=== PATIENT | female | born 1950 | race Caucasian/White ===

== ENCOUNTER → 2018-09-26 13:48 | Outpatient (CLI) | payer BC, MEDICARE ==
[2015-09-14 13:13] VITALS: BMI 40.1
[~2018-09-26 13:48] MED LIST: HYZAAR 50-12.51 TAB PO; LEXAPRO20 MG PO; SYNTHROID88 MCG PO; ZANAFLEX4 MG PO
--- NOTE | 2018-10-01 12:04 | ST ---
PATIENT:TSEWART HUERTAS MEDICAL RECORD: [id number] SEX: F LOCATION:[facility] ORDER #: ADMISSION DATE: 09/26/18 AGE OF PATIENT: 68 REFERRING PHYSICIAN: INTERPRETING PHYSICIAN: KRISTIN GALDAMEZ MD DATE OF SERVICE: 09/26/2018 PROCEDURE: EKG stress test. INDICATIONS: Angina, shortness of breath. She was exercised on standard Trent protocol for 5 minutes, terminated due to achievement of maximum target heart rate response with anginal chest discomfort and shortness of breath during the study. EKG shows greater than 2-mm ST depression. OVERALL IMPRESSION: Positive for inducible ischemia with symptomatology as well as by EKG criteria. Most likely signifies hemodynamically significant coronary artery disease. TRANSINT:[id number] Voice Confirmation ID: [id number] DOCUMENT ID: [id number] KRISTIN GALDAMEZ MD at 1204 CC: [id number] DICTATION DATE: 09/30/18 1150 FLIGHT TEACHER: 09/30/18 2222 DEP CLI 09/26/18 [id number] [place] [address]
== END | disposition home or self-care (01) ==
LOC: D.HCCARDIO 13:48
PROVIDERS: ATTEND Internal Medicine Interventional Cardiology
DX: I20.9 Angina pectoris, unspecified (principal)

== ENCOUNTER → 2018-09-27 11:12 | Outpatient (CLI) | payer BC, MEDICARE ==
[2015-09-14 13:13] VITALS: BMI 40.1
--- NOTE | 2018-10-01 12:04 | EC ---
PATIENT:STEWART HUERTAS DATE OF SERVICE: 09/27/18 SEX: F MEDICAL RECORD: [id number] DATE OF : [birth year] LOCATION:D[facility] AGE OF PATIENT: 68 ADMISSION DATE: 09/27/18 REFERRING PHYSICIAN: INTERPRETING PHYSICIAN: KRISTIN VASQUEZ MD ECHOCARDIOGRAM REPORT ECHO CHARGES 4 ECHO COMPLETE Date: 09/27/18 CLINICAL DIAGNOSIS: MITRAL REGURG, ASSESS FOR CARDIOMYOPATHY, BRADYCARDIA ECHOCARDIOGRAPHIC MEASUREMENTS (adult normal given) AC root (d.<3.7cm) 2.8 cm LV Septum d (<1.2 cm> 1.3 cm Valve Excursion 1.4 cm LV Septum (systole) 1.6 cm Left Atria (s.<4.0cm> 4.1 cm LVPW d(<1.2cm) 1.8 cm RV (d.<2.3cm) 4.1 cm LVPW (sytole) 2.0 cm LV diastole(<5.6CM) 4.8 cm MV E-F(>70mm/sec) cm LV systole 3.1 cm LVOT Diameter 1.6 cm MV exc.(>10mm) 1.4 cm Est.ejection fraction (50-75%) % DOPPLER: LVIT cm/sec A 80.0 cm/sec E 117 cm/sec LA cm/sec RVSP 50 mmHg LVOT 140 cm/sec AOP1/2T m/s Asc. Ao 166 cm/sec RVOT 93 cm/sec RA cm/sec PA 127 cm/sec AV Gradient Peak 11.05mmHg AV Mean 5.82 mmHg AV Area 1.9 cm MV Gradient Peak 6.77 mmHg MV Mean 1.82 mmHg MV Area cm COMMENTS: Levi Maker: Daphney REESE Speech And Language Assistant: 1 Dr. Vasquez TAPE# PACS Pericardial Effusion N DATE OF SERVICE: 09/27/2018 PROCEDURE: Echocardiogram. FINDINGS: 1. Left ventricular chamber size is within normal limits. Left ventricular systolic function is normal at 60%. 2. Left atrium is enlarged at 4.1 cm. Right atrium and right ventricular chamber sizes are as well mildly dilated. 3. Valvular structures have normal structure and motion. ECHOCARDIOGRAM REPORT [id number] STEWART HUERTAS 4. Doppler interrogation reveals mild mitral regurgitation, mild tricuspid regurgitation, no other valvular insufficiency or stenosis. Pulmonary systolic pressure is elevated estimated at 50 mmHg. 5. No evidence of pericardial effusion or left ventricular thrombus. TRANSINT:[id number] Voice Confirmation ID: [id number] DOCUMENT ID: [id number] KRISTIN VASQUEZ MD at 1204 CC: [id number] DICTATION DATE: 09/30/18 1140 OFFICE SUPPORT SPECIALIST: 09/30/18 1150 DEP CLI 09/27/18 [id number] [place] [address]
== END | disposition home or self-care (01) ==
LOC: D.HCCARDIO 11:12
PROVIDERS: ATTEND Internal Medicine Interventional Cardiology
DX: I34.0 Nonrheumatic mitral (valve) insufficiency (principal)

== ENCOUNTER 2018-10-04 08:50 | Outpatient (CLI) | payer BC, MEDICARE ==
[~2018-10-04] VITALS: Ht 154.9 cm; Wt 96.4 kg
--- NOTE | ~2018-10-04 | HEMODYNAMI ---
PATIENT:STEWART HUERTAS MEDICAL RECORD: [id number] : 52 LOCATION:[facility] ADMISSION DATE: 10/04/18 Generatedon:10/04/201813:28 Patient name: STEWART HUERTAS Patient #: [id number] : 1950 Date of study: 10/04/2018 Page: Of Hemodynamic Procedure Report Patient Data Patient Demographics Procedure consent was obtained First Name: STEWART Gender: Female Last Name: KIYA : 1950 Middle Initial: LATONIA Age: 68 year(s) Patient #: [id number] Race: Unknown SSN: [id number] Additional ID: [id number] Contact details [address]: [address] [place] [address] State: [place] City: [place] Zip code: [address] Past Medical History Allergies Allergen Reaction Date Comments Reported Other allergy 10/04/2018 Sulfa Admission Admission Data Admission Date: 10/04/2018 Admission Time: 8:50 Height (in.): 61 BSA: 1.95 (m2) Height (cm.): 154.94 BMI: 40.62 (kg/m2) Weight (lbs.): 215 Weight (kg.): 97.52 Lab Results Lab Result Date: 10/04/2018 Lab Result Time: 0:00 Biochemistry Name Units Result Min Max BUN mg/dl 11 --(-*--)-- 7 18 Creatinine mg/dl 0.8 --(-*--)-- 0.6 1.3 CBC Name Units Result Min Max Hemoglobin g/dl 12.1 *-(----)-- 13.5 17.5 Procedure Procedure Types Cath Procedure Diagnostic Procedure [facility] w/Coronaries Procedure Description Procedure Date Procedure Date: 10/04/2018 Procedure Start Time: 13:21 Procedure End Time: 13:27 Procedure Staff Name Function Sheri Resendez MD Ordering physician Kavon Vasquez MD Performing Physician Genet Zamorano RT Monitor Bryan Lezama RN Nurse Marcella Salgado RT Scrub Procedure Data Cath Procedure Fluoroscopy Diagnostic fluoroscopy Total fluoroscopy Time: 0.6 time: 0.6 min min Diagnostic fluoroscopy Total fluoroscopy dose: 237 dose: 237 mGy mGy Contrast Material Contrast Material Type Amount (ml) Isovue 300 34 Entry Location Entry Primary Successful Side Size Upsize Upsize Entry Closure Bond ccessful Closure Location (Fr) 1 (Fr) 2 (Fr) Remarks Device Remarks Radial Right 6 Fr Mechanical artery Short Compression Estimated blood loss: 10 ml Diagnostic catheters Device Type Used For End Catheter Placement DIAGNOSTIC [place] 110cm 5 Procedure Fr catheter ([id number]) Procedure Complications No complications Procedure Medications Medication Administration Route Dosage 0.9% NaCl I.V. 100 ml/hr Oxygen etCO2 Nasal cannula 2 l/min Heparin Flush Bag added to field 2 bags (1000units/500ml NS) Lidocaine 2% added to field 20 Radial Cocktail added to field 1 syringe (Verapamil 2mg/Nitro 400mcg/Heparin 1500units) Versed I.V. 2 mg Fentanyl I.V. 100 mcg Radial Cocktail I.A. 1 syringe (Verapamil 2mg/Nitro 400mcg/Heparin 1500units) Versed I.V. 1 mg Hemodynamics Rest BSA: 1.95 (m2) HGB: 12.1 (g/dl) O2 Consumption: Estimated: 170.57 (ml/min) O2 Co nsumption indexed: Estimated:87.47 (ml/min/m) Heart Rate: 56 (bpm) Pressure Samples Time Site Value (mmHg) Purpose Heart Use Rate(bpm) 13:22 LV 159/64,10 Snapshot 82 13:23 AO 86/64(75) Pullback 64 13:23 LV 97/-1,30 Pullback 64 Gradients Valve Time Site 1 Site 2 Mean SEP/DFP Peak To Heart Use (mmHg) (sec/min) Peak Rate (mmHg) (bpm) Aortic 13:23 LV AO 2 5 11 64 97/-1,30 86/64(75) Calculations Valve P-P Mean Valve Index Valve Source Name Gradient Area Flow (cm2) Aortic 11 2 11 2 Snapshots Pre Cath Intra NCS Post Cath Vital Signs Time Heart Resp SPO2 etCO2 NIBP (mmHg) Rhythm Pain Sedation Rate (ipm) (%) (mmHg) Status Level (bpm) 12:50:26 51 16 0 126/67(94) NSR 0 (11) 10(A) , No pain 12:54:54 59 19 97 43.5 121/54(78) NSR 0 (11) 10(A) , No pain 13:00:14 56 10 98 47.2 120/56(66) NSR 0 (11) 10(A) , No pain 13:09:43 52 11 96 49.5 129/67(100) NSR 0 (11) 10(A) , No pain 13:14:09 58 12 97 23.2 105/61(84) NSR 0 (11) 10(A) , No pain 13:18:31 64 24 95 36 105/47(87) NSR 0 (11) 10(A) , No pain 13:23:41 69 17 95 44.2 97/53(82) NSR 0 (11) 9(A) , No pain 13:27:53 69 11 95 48.7 113/59(93) NSR 0 (11) 9(A) , No pain Medications Time Medication Route Dose Verified Delivered Reason Notes Effectiveness by by 12:52:33 0.9% NaCl I.V. 100 Bryan Bryan Per ml/hr Lise Lezama physician RN RN 12:52:42 Oxygen etCO2 2 l/min Bryan Bryan for low 02 Nasal Lorigan Lorigan sats cannula RN RN 12:52:51 Heparin Flush added 2 bags Bryan Bryan used for Bag to Lorigan Lorigan procedure (1000units/500ml [facility] RN RN NS) 12:53:01 Lidocaine 2% added 20ml Bryan Bryan for local to vial Lorigan Lorigan anesthetic field RN RN 12:53:12 Radial Cocktail added 1 Bryan Bryan used for (Verapamil to syringe Lorigan Lorigan procedure 2mg/Nitro field RN RN 400mcg/Heparin 1500units) 13:21:44 Versed I.V. 2 mg Bryan Bryan for sedation Lise Lezama RN RN 13:21:54 Fentanyl I.V. 100 mcg Bryan Bryan for sedation Lise Lezama RN RN 13:22:08 Radial Cocktail I.A. 1 Bryan Kavon for (Verapamil syringe Lise Vasquez MD vasodilation 2mg/Nitro RN 400mcg/Heparin 1500units) 13:23:40 Versed I.V. 1 mg Bryan Bryan for sedation Lorigan Lorigan RN slasher hand Log Time Note 12:30:28 Patient Height : 61 inches 12:30:40 Patient Weight : 215 lbs 12:47:52 Procedure Status Elective Heart Cath (OP). 12:47:58 Genet Zamorano RT(R) sent for patient. Start room use. 12:48:52 Time tracking: Regular hours (M-F 7:00 - 5:00) 12:48:57 Plan of Care:Hemodynamics will remain stable., Cardiac rhythm will remain stable., Comfort level will be maintained., Respiratory function will remain adequate., Patient/ family verbilizes understanding of procedure., Procedure tolerated without complication., Recovers from procedure without complications.. 12:49:04 Patient received from Pre/Post Procedure Room to CCL 2 Alert and oriented. Tansferred to table in Supine position. 12:49:07 Signed procedure consent form obtained from patient. 12:49:09 Warm blankets applied, and harini hugger turned on for patient comfort. 12:49:13 Correct patient and procedure confirmed by team. 12:49:14 ECG and BP/O2 sat monitors applied to patient. 12:49:15 Vital chart was started 12:49:17 Baseline sample Acquired. 12:49:19 Baseline sample Acquired. 12:49:25 Rhythm: sinus rhythm 12:49:27 Full Disclosure recording started 12:49:53 H&P Date Dictated: 09/19/2018 Within 30 days and on chart., H&P Addendum completed by physician on day of procedure. (MUST COMPLETE FOR ALL OUTPATIENTS). 12:49:55 Pre-procedure instructions explained to patient. 12:50:00 Family in waiting room. 12:50:02 Patient NPO since Midnight. 12:50:14 Patient allergic to Other allergySulfa 12:50:19 Is the patient allergic to Iodine/contrast media? No. 12:50:23 Was the patient premedicated? Yes 12:50:43 Is patient on blood thinner?No 12:50:48 Patient diabetic? No. 12:50:58 Snore? Yes 12:51:00 Sleep apnea? No 12:51:08 Airway obstruction? Yes asthma 12:51:13 Dentures? Yes in tight 12:51:20 Patient pain scale 0/10 ?. 12:51:27 IV patent on arrival in left forearm with 0.9% NaCl at [facility]. 12:: Lab Result : BUN 11 mg/dl 12:: Lab Result : Creatinine 0.8 mg/dl :: Lab Result : Hemoglobin 12.1 g/dl 12::33 0.9% NaCl 100 ml/hr I.V. was administered by Bryan Lezama RN; Per physician; 12::33 Lab results completed and on chart. 12::40 Right Radial & Right Groin area was prepped with chlora-prep and draped in sterile fashion 12:: Alarms reviewed by R. N. 12::42 Oxygen 2 l/min etCO2 Nasal cannula was administered by Bryan Lezama RN; for low 02 sats; ::42 Sharps counted by scrub and verified by R.N. 12:52:46 Physician paged 12::51 Heparin Flush Bag (1000units/500ml NS) 2 bags added to field was administered by Bryan Lezama RN; used for procedure; 12:53:01 Lidocaine 2% 20ml vial added to field was administered by Bryan Lezama RN; for local anesthetic; 12:53:12 Radial Cocktail (Verapamil 2mg/Nitro 400mcg/Heparin 1500units) 1 syringe added to field was administered by Bryan Lezama RN; used for procedure; 12:56:58 Use device set Radial Dx or PCI 12:57:00 ACIST Syringe (89831) opened to sterile field. 12:57:00 Medline Cath Pack ([id number]) opened to sterile field. 12:57:01 Bag Decanter (2002) opened to sterile field. 12:57:01 ACIST Hand Control (90952) opened to sterile field. 12:57:02 ACIST Manifold (32972) opened to sterile field. 12:57:08 EMERALD Guide Wire (463-576) opened to sterile field. 12:57:09 SHEATH 6FR RAIN (7125016) opened to sterile field. 12:57:14 TR BAND Large (PNB16GHY) opened to sterile field. 12:57:16 MBrace Wrist Support ([id number]) opened to sterile field. 12:57:17 Tegaderm 4 x 4 (1626W) opened to sterile field. 12:57:20 NEEDLE Cook 21G 4cm Radial (Y28099) opened to sterile field. 12:58:46 Zero performed for pressure channel P1 12:58:54 Zero performed for pressure channel P1 12:59:04 Zero performed for pressure channel P1 13:18:37 Maximum allowable contrast dose (3.7 X eGFR X 0.75)210 ml. 13:18:46 2) 60-89 Mildly reduced kidney function, and other findings (as for stage 1) point to kidney disease. 13:20:15 Physician arrived 13:20:16 --------ALL STOP TIME OUT------ 13:20:17 Final Timeout: patient, procedure, and site verified with staff and physician. All members of the team are in agreement. 13:20:19 Right Radial & Right Groin site verified by team. 13:20:23 Fire Safety Assessment: A--An alcohol-based skin anteseptic being used preoperatively., C--Open oxygen or nitrous oxide is being used., D--An ESU, laser, or fiber-optic light is being used. 13:20:29 Physical assessment completed. ASA score P 2 - A patient with mild systemic disease as per Kavon Vasquez MD. 13:20:34 Sedation plan: IV Moderate Sedation Medication:Versed, Fentanyl 13:20:38 Procedure started. 13:21:24 Local anesthetic to right radial artery with Lidocaine 2% by Kavon Vasquez MD.INITIAL ACCESS ONLY 13:21:33 A 6 Fr Short sheath was inserted into the Right Radial artery 13:21:44 Versed 2 mg I.V. was administered by Bryan Lezama RN; for sedation; 13:21:54 Fentanyl 100 mcg I.V. was administered by Bryan Lezama RN; for sedation; 13:22:01 A DIAGNOSTIC [place] 110cm 5 Fr catheter (376657) was advanced over the wire and used for Procedure. 13:22:08 Radial Cocktail (Verapamil 2mg/Nitro 400mcg/Heparin 1500units) 1 syringe I.A. was administered by Kavon Vasquez MD; for vasodilation; 13:22:21 LV angiography performed. 13:23:00 EF : 60 % 13:23:04 LCA angiography performed. 13:23:40 Versed 1 mg I.V. was administered by Bryan Lezama RN; for sedation; 13:23:41 RCA angiography performed. 13:23:45 Catheter removed. 13:24:16 Sheath removed intact; hemostasis achieved with Mechanical Compression to the Right Radial artery. 13:24:19 Procedure ended.(Physican Out) 13::44 Fluoroscopy time 00.60 minutes. 13:24:49 Fluoroscopy dose: 237 mGy 13:24:49 Flurop Dose total: 237 13:25:46 Dose Area Product 83667 mGy/cm. 13:25:52 Contrast amount:Isovue 300 34ml. 13:25:55 Maximum allowable dose exceeded? No. 13:25:56 Sharps counted by scrub and verified by R.N. 13:26:01 Rosie band inflated with 10cc of air. 13:26:03 Insertion/operative site no bleeding no hematoma. 13:26:06 Post Procedure Pulses reassessed and unchanged 13:26:11 Post-procedure physical assessment completed. ASA score P 2 - A patient with mild systemic disease as per Kavon Vasquze MD. 13:26:15 Post procedure rhythm: unchanged. 13:26:20 Estimated blood loss: 10 ml 13:26:23 Post procedure instruction explained to patient.Patient verbalizes understanding. 13:26:33 Procedure and supply charges have been captured, reviewed, submitted and are correct. 13:27:02 Procedure Complication : No complications 13:27:04 Vital chart was stopped 13:27:10 See physician's report for complete and final results. 13:27:13 Report given to Pre/Post Procedure Room. 13:27:18 Patient transfered to Pre/Post Procedure Room with Stretcher. 13:27:21 Procedure ended. 13:27:21 Full Disclosure recording stopped 13:27:24 End room use (Document Last) Device Usage Item Name Manufacture Quantity Catalog Hospital Part Current Minima l Lot# / Number Charge Number Stock Stock Serial# Code ACIST Acist 1 38783 499003 [id number] [id number] 20 Syringe Medical (16056) Systems Inc Medline Medline 1 [id number] 63842 [id number] 5 Cath Pack ([id number]) Bag Microtek 1 504099 42253 000739 5 Decanter Medical Inc. () ACIST Hand Acist 1 02266 448638 229021 791744 5 Control Medical (83302) Systems Inc ACIST Acist 1 79363 517602 185855 872934 5 Manifold Medical (58244) Systems Inc EMERALD Cardinal 1 502-712 856383 704344 230798 5 Guide Wire Health (502455) SHEATH 6FR Cardinal 1 8595853 006484 6717804 719104 5 RAIN Health (7452463) TR BAND Terumo 1 [id number] 690581 238188 500530 40 Large ([id number]) MBrace Advanced 1 140-0250-00 797867 96147 729112 5 Wrist Vascular Support Dynamics ([id number]) Tegaderm 4 3M 1 1626W 547275 724650 849474 5 x 4 (1626W) NEEDLE Cook Cook Medical 1 [id number] 045316 781992 869022 5 21G 4cm Radial (A44083) DIAGNOSTIC Terumo 1 40-8066 219078 053390 402297 5 [place] 110cm 5 Fr catheter (383569) Signature Audit Wann Stage Time Signature Unsigned Intra-Procedure 10/04/2018 Genet Zamorano 1:28:22 PM RT(R) Signatures Performing Physician : Signature : Kavon Vasquez MD Date : Time : Monitor : Genet Zamorano Signature : RT Date : Time : Nurse : Bryan Lezama Signature : RN Date : Time : [facility] [address] [place] [address]
[2018-10-04 09:28] VITALS: BP 152/68; Ht 154.9 cm; Wt 96.4 kg
[2018-10-04 09:51] LABS: ALT (SGPT) 17 U/L (10-68); CALC OSMOLALITY 281 mosm/kg (275-300); CALCIUM 9.1 mg/dL (8.5-10.1); CHLORIDE - SERUM 106 mmol/L (98-107); CHOL - HDL RATIO 4.5 ratio (2.3-4.1); CHOLESTEROL, TOTAL 176 mg/dL (0-200); CREATININE - SERUM 0.8 mg/dL (0.6-1.3); GLUCOSE 93 mg/dL (74-106); HDL CHOLESTEROL 39 mg/dL (32-96); LDL CHOLESTEROL 119 mg/dL (0-100); LDL-HDL RATIO 3.1 ratio (1.5-3.5); POTASSIUM - SERUM 3.6 mmol/L (3.5-5.1); SODIUM 142 mmol/L (136-145); TRIGLYCERIDE 94 mg/dL (30-200); UREA NITROGEN 11 mg/dL (7-18); eGFR NON AFRICAN AMERICAN 76 mL/min (90-120)
[2018-10-04 09:53] LABS: BASOPHILS 0.2 % (0-2); EOSINOPHILS 1.7 % (0-7); HEMATOCRIT 36.9 % (36.0-48.0); HEMOGLOBIN 12.1 g/dL (12-16); IMMATURE GRANULOCYTES 0.2 % (0-5); LYMPHOCYTES 26.3 % (15-50); MCH 28.3 pg (26.0-34.0); MCHC 32.8 g/dL (31.0-37.0); MCV 86.2 fL (80.0-100.0); MEAN PLATELET VOLUME 9.1 fL (7.4-10.4); MONOCYTES 7.2 % (2-11); NEUTROPHILS 64.4 % (40-80); PLATELET COUNT 311 10x3/uL (130-400); RBC 4.28 10x6/uL (4.00-5.40); RDW 14.4 % (11.5-14.5)
[2018-10-04 09:57] LABS: CARBON DIOXIDE 29.6 mmol/L (21.0-32.0)
--- NOTE | 2018-10-04 13:35 | NUR ---
PT RECEIVED VIA STRETCHER FROM AUTO GLASS INSTALLER FOR RECOVERY. PT DROWSY, BUT VERBALLY AROUSABLE. PT DENIES PAIN OR DISCOMFORT. IV INFUSING VIA ORDERS. HR 62, BP 108/53, O2 SAT 94, PT PLACED ON O2 AT 2L/NC. Z BAND AND IMMOBILIZER TO R WRIST, DRESSING CDI NO BLEEDING OR HEMATOMA NOTED. ARM PINK AND WARM, CAP REFILL BRISK. CALL LIGHT IN REACH
--- NOTE | 2018-10-04 14:00 | NUR ---
PT RESTING W EYES CLOSED, Z BAND AND IMMOBILIZER IN PLACE, DRESSING CDI NO BLEEDING OR SWELLING NOTED. ARM PINK AND WARM. VSS. CALL LIGHT IN REACH, FAMILY AT BEDSIDE.
--- NOTE | 2018-10-04 14:31 | NUR ---
PT DENIES PAIN OR DISCOMFORT. Z BAND AND IMMOBILIZER REMAIN IN PLACE ON R WRIST, DRESSING CDI NO BLEEDING OR SWELLING NOTED. FAMILY AT BEDSIDE, CALL LIGHT IN REACH. VSS.
--- NOTE | 2018-10-04 14:56 | NUR ---
HOB ELEVATED, SANDWICH TRAY AND DRINK SERVED. O2 REMOVED. PT DENIES PAIN OR NEEDS AT THIS TIME. Z BAND IN PLACE, AIR REMOVAL STARTED PER PROTOCOL, 4CC REMOVED W/O BLEEDING OR SWELLING. VSS. CALL LIGHT IN REACH. DR GALDAMEZ AT BEDSIDE DISCUSSING PROCEDURE RESULTS AND PLAN OF CARE.
--- NOTE | 2018-10-04 15:10 | NUR ---
4cc OF AIR REMOVED FROM TR BAND. TOLERATED WELL. NO BLEEDING/HEMATOMA NOTED. PIV D/C'D WITH CATH TIP INTACT. PT INSTRUCTED TO GET DRESSED. FAMILY AT BEDSIDE TO ASSIST.
--- NOTE | 2018-10-04 15:15 | NUR ---
RIGHT RADIAL TR BAND REMOVED. DRESSING APPLIED. NO BLEEDING/HEMATOMA NOTED. DISCUSSED DISCHARGE WITH PT AND PT'S FAMILY. THEY VOICED UNDERSTANDING.
--- NOTE | 2018-10-04 15:29 | NUR ---
RIGHT WRIST DRESSING C/D/I. NO S/S OF HEMATOMA NOTED. PT TAKEN OUT TO VEHICLE BY WHEELCHAIR. NO S/S OF DISTRESS NOTED. ALL BELONGINGS AND PAPERWORK IN HAND.
--- NOTE | 2018-10-08 11:09 | OP ---
PATIENT NAME: STEWART HUERTAS MEDICAL RECORD: [id number] :52 LOCATION:D.[facility] ADMISSION DATE: SURGEON: KRISTIN GALDAMEZ MD DATE OF OPERATION: 10/04/2018 DATE OF SERVICE: 10/04/2018 PROCEDURES: 1. Left heart catheterization. 2. Selective coronary angiography. 3. Left ventriculogram. INDICATION: Angina, abnormal nuclear stress test. PROCEDURE IN DETAIL: After informed consent was obtained and after detailed description of risks, benefits as well as alternative therapy, the patient elected to proceed with angiogram and heart catheterization. The right radial area was prepped and draped in normal sterile fashion. Right radial artery was cannulated via modified Seldinger technique with placement of 5-American sheath. All catheters exchanged through this sheath. FINDINGS: Left ventriculogram was performed in standard 30-degree MOREJON view, reveals good cardiac wall motion throughout all segments. Overall ejection fraction estimated at 60% to 65%. SELECTIVE CORONARY ANGIOGRAPHY: Left main, left anterior descending, left circumflex, right coronary are all smooth-walled vessels with no angiographic evidence of coronary artery disease. OVERALL IMPRESSION: 1. No angiographic evidence of coronary artery disease. 2. Normal left heart pressures. 3. Normal left ventricular systolic function. TRANSINT:[id number] Voice Confirmation ID: [id number] DOCUMENT ID: [id number] KRISTIN GALDAMEZ MD at 1109 CC: [id number] DICTATION DATE: 10/04/18 1359 FAIRING WORKER: 10/04/18 1446 DEP CLI 10/04/18 [id number] [place] [address] [id number]
== END 2018-10-04 15:30 | disposition home or self-care (01) ==
LOC: D.CATH 08:50
PROVIDERS: ATTEND Internal Medicine Interventional Cardiology
DX: I20.9 Angina pectoris, unspecified (principal); Z01.812 Encounter for preprocedural laboratory examination

== ENCOUNTER → 2018-12-19 16:36 | Outpatient (CLI) | payer BC, MEDICARE ==
[2018-10-04 09:28] VITALS: BMI 40.1
[2018-12-19 17:37] LABS: CHOL - HDL RATIO 4.7 ratio (2.3-4.1); LDL-HDL RATIO 3.2 ratio (1.5-3.5)
== END | disposition home or self-care (01) ==
LOC: D.LABREF 16:36
PROVIDERS: ATTEND Internal Medicine Interventional Cardiology
DX: E78.5 Hyperlipidemia, unspecified (principal)